=== PATIENT | female | born 1945 | race Caucasian/White ===

== ENCOUNTER 2018-01-18 11:08 | Inpatient (IN) | payer MEDICARE, BC ==
[~2018-01-18] VITALS: Ht 167.6 cm; Wt 59.0 kg
[2018-01-18] MEDS ORDERED: NITR50CA PO (11:27)
[2018-01-18] MEDS ORDERED: TEMA30CA PO (11:27)
[2018-01-18] MEDS ORDERED: METF-442 PO (11:27)
[2018-01-18] MEDS ORDERED: TIZA4TAB4 PO (11:27)
[2018-01-18] MEDS ORDERED: LOPERAMIDE (11:27)
[2018-01-18] MEDS ORDERED: LATA2.5D7 EACHEYE (11:27)
[2018-01-18] MEDS ORDERED: LISI-607 PO (11:27)
[2018-01-18] MEDS ORDERED: ACIDOPHILUS PO (11:27)
[2018-01-18] MEDS ORDERED: CRANBERRY PO (11:27)
[2018-01-18] MEDS ORDERED: LAMO25TA PO (11:27)
[2018-01-18] MEDS ORDERED: ASPI81TA31 PO (11:27)
[2018-01-18] MEDS ORDERED: MELA3TAB PO (11:27)
[2018-01-18] MEDS ORDERED: FLUO-120 PO (11:27)
[2018-01-18] MEDS ORDERED: MAGN250T10 PO (11:27)
[2018-01-18] MEDS ORDERED: CLON0.5T12 PO (11:27)
--- NOTE | 2018-01-18 11:36 | NUR ---
Joan gold in ED - 01/18/18 at 1327 by SABINA PT IS IN ROOM #2B. DR VIGIL EVALUATED THE PT.
[2018-01-18 11:40] LABS: BASOPHILS % (AUTO) 0.4 % (0.0-2.0); EOSINOPHILS # (AUTO) 0.9 K/uL (0.0-0.7); EOSINOPHILS % (AUTO) 15.7 % (0.0-7.0); HEMATOCRIT 34.1 % (31.2-41.9); HEMOGLOBIN 11.6 g/dL (10.9-14.3); LYMPHOCYTES # (AUTO) 0.8 K/uL (20.0-40.0); LYMPHOCYTES % (AUTO) 13.5 % (20.5-51.5); MEAN CORPUSCULAR HEMOGLOBIN 32.9 uug (24.7-32.8); MEAN CORPUSCULAR HGB CONC 34 g/dL (32.3-35.6); MEAN CORPUSCULAR VOLUME 96.3 fL (75.5-95.3); MONOCYTES # (AUTO) 0.5 K/uL (2.0-10.0); MONOCYTES % (AUTO) 9.1 % (0.0-11.0); NEUTROPHILS # (AUTO) 3.5 K/uL (1.8-8.9); NEUTROPHILS % (AUTO) 61.3 % (38.5-71.5); PLATELET COUNT (AUTO) 139 K/uL (179-408); RED BLOOD CELL COUNT(AUTO) 3.54 MIL/uL (3.63-4.92); WHITE BLOOD COUNT (AUTO) 5.6 K/uL (3.8-11.8)
[2018-01-18 11:43] LABS: CARBON DIOXIDE 28 mmol/L (21-32); CHLORIDE 103 mmol/L (98-107); CREATININE 0.8 mg/dL (0.6-1.3); GLUCOSE 91 mg/dL (74-106); POTASSIUM 4.5 mmol/L (3.5-5.1); UREA NITROGEN, BLOOD 16 mg/dL (7-18)
--- NOTE | 2018-01-18 11:44 | NUR ---
Joan gold in ED - 01/18/18 at 1145 by SABINA PT WAS D/C TO HOME. D/C INSTRUCTIONS GIVEN TO THE PT.
[2018-01-18 11:48] LABS: ALANINE AMINOTRANSFERASE 17 U/L (14-59); ALKALINE PHOSPHATASE 105 U/L (50-136); ASPARTATE AMINOTRANSFERASE 7 U/L (15-37); BILIRUBIN,TOTAL 0.2 mg/dL (0.2-1.0); TOTAL PROTEIN, SERUM 6.3 g/dL (6.4-8.2)
[2018-01-18] MEDS ORDERED: LORAZEPAM 2 MG/1 ML VIAL ONE ×2 (11:51→12:42)
[2018-01-18] MEDS ORDERED: LORAZEPAM 2 MG/1 ML VIAL IM ONE ×2 (12:00→12:45)
[2018-01-18 12:23] LABS: THYROID STIMULATING HORMONE 1.602 mIU/mL (0.358-3.740)
[2018-01-18] MEDS ORDERED: CEPHALEXIN MONOHYDRATE 500 MG CAPSULE PO ONE (12:30)
[2018-01-18] MEDS ORDERED: NEOMY/BACITRA/POLYMYXIN B OINT UD PACKET TP ONE ×2 (12:30→12:56)
[2018-01-18] MEDS ORDERED: diphenhydrAMINE 50 MG/1 ML VIAL ONE (12:42)
[2018-01-18] MEDS ORDERED: diphenhydrAMINE 50 MG/1 ML VIAL IM ONE (12:45)
[2018-01-18] MEDS ORDERED: CEPHALEXIN MONOHYDRATE 500 MG CAPSULE ONE (12:57)
--- NOTE | 2018-01-18 13:26 | NUR ---
mse completed, meds administered, pt did not void, sbar report to rochelle rn -mhu. belongings list , admit order and mrsa-nares completed. pt via gene to mhu.
[2018-01-18 13:45] VITALS: BP 130/97
[2018-01-18] MEDS ORDERED: MAGNESIUM HYDROXIDE 30 ML LIQUID UDC PO PRN (14:00)
[2018-01-18] MEDS ORDERED: MAG HYDROX/AL HYDROX/SIMETH 30 ML LIQUID UDC PO PRN (14:00)
--- NOTE | 2018-01-18 15:00 | NUR ---
1345 PT ADMITTED TO UNIT ON [facility] FOR THE CRIMINALLY INSANE FROM ER. PT WAS LIVING AT BOARD AND CARE IN [place]. BOARD AND CARE REPORTED THAT PT HAD BEEN SCREAMING NON STOP FOR 1 WEEK AND CONSTANTLY TRYING TO THROW HERSELF ONTO THE FLOOR FROM HER CHAIR ( Addendum: 01/18/18 at 1953 by ASA MAYORGA RN (SHE IS NON AMBULATORY AND UNABLE TO STAND OR WALK). PT HX OF DM (NO ACCUCHECK) ANXIETY, BIPOLAR, HTN. PT IS CONFUSED AND NOT ABLE TO ANSWER QUESTIONS APPROPIATLEY. SCREAMS "MOMMA" OVER AND OVER. NOT REDIRECTABLE. GAVE HALDOL 3MG IM PER MD ORDER. SKIN PROBLEMS PRESENT ON ADMISSION: SKIN TEAR ON L ELBOW, ABRASIONS ON BOTH FEET, LARGE RED AREA ON COCCYX/BUTTOX. PICTURES IN CHART. AIR MATTRESS ORDERED, INSPECTOR RADAR AND ELECTRONICS SET FOR TURN Q 2, 1:1 ORDERED FOR SAFETY SINCE PT IS TRYING TO ROLL ONTO FLOOR.
[2018-01-18] MEDS ORDERED: HALOPERIDOL LACTATE 5 MG/1 ML VIAL IM STA (15:53)
[2018-01-18 16:00] VITALS: BP 137/86
[2018-01-18] MEDS ORDERED: Medication Not On Formulary EA (Metformin Hcl 1,000 MG) PO SCH (17:00)
[2018-01-18] MEDS: METFORMIN HCL 500 MG TABLET PO SCH (18:40)
[2018-01-18 19:30] VITALS: BP 106/55
[2018-01-18] MEDS: LATANOPROST OPHT DROP 2.5 ML BOTTLE EACHEYE SCH (21:00)
[2018-01-18] MEDS: MAGNESIUM OXIDE 250 MG TABLET PO SCH (21:00)
--- NOTE | 2018-01-18 21:32 | NUR ---
Received pt to care. Pt in bed yelling and screaming. Pt calls out for "mommy". Pt is A&O X1. Pt denies that she is in pain. Pt has a 1:1 sitter that fed her dinner and pt ate 100%. After dinner the pt was observed having a productive cough but pt then swallows the mucus. Pt has a lot of mucus and appears to be unable to get it out. Pt meds were held due to agitation and advertising writer did not feel comfortable giving PO meds in pt condition. Pt denies SOB, chest x-ray from ER shows clear lungs. Textile Dyer did assess pt lungs and heard rhonchi. Textile Dyer was unable to reach RT for assessment and will follow up. Pt head was let down to pull her up in bed and noticed the distress went away. Pt is not laying flat and observed sleeping quiet.
[2018-01-19 07:30] VITALS: BP 144/56
[2018-01-19] MEDS: ASPIRIN 81 MG TAB.CHEW PO SCH (08:57)
[2018-01-19] MEDS: METFORMIN HCL 500 MG TABLET PO SCH ×2 (08:57→17:37)
[2018-01-19] MEDS: LISINOPRIL 5 MG TABLET PO SCH (08:58)
[2018-01-19] MEDS: Z GUARD REMEDY PASTE 57 GM TUBE TOP SCH ×2 (08:59→20:11)
[2018-01-19] MEDS ORDERED: PNEUMOCOCCAL 23-VAL P-SAC VAC 0.5 ML VIAL IM ONE (09:00)
[2018-01-19] MEDS ORDERED: INFLUENZA VACCINE 2018-2019 0.5 ML DISP.SYRIN IM ONE (09:00)
--- NOTE | 2018-01-19 09:13 | NUR ---
Gps/Drivers' Cash Clerk- Stayed in the activity room, on her chuyita-chair, per P.T. staff at [facility] , uses lakesha lift to assist patient to chair. Safety reviewed emphasized, has 1:1 Nursing supervision for safety. Noted patches of small bruising to her forearm as well as scabs to her left elbow noted, sacral/coccygeal redness, encouraged pressure relief.Poor skin turgor, z-guard to coccygeal area .Lungs are clear w/ auscultation , no rhonchi noted, continue to monitor, sitter was well informed.
[2018-01-19] MEDS: LORAZEPAM 0.5 MG TABLET PO PRN ×2 (09:47→16:52)
--- NOTE | 2018-01-19 11:41 | NUR ---
Gps/Career Development Engineer- Flu vaccine and Pneumonia vaccine was administered per Hosp.policy, patient was well informed.
[2018-01-19] MEDS ORDERED: QUETIAPINE FUMARATE 25 MG TABLET PO PRN (13:00)
[2018-01-19] MEDS: busPIRone 5 MG TABLET PO SCH ×2 (13:19→16:54)
[2018-01-19] MEDS: QUETIAPINE FUMARATE 25 MG TABLET PO SCH ×2 (13:19→20:13)
[2018-01-19] MEDS: GABAPENTIN 100 MG CAPSULE PO SCH ×2 (13:20→16:54)
[2018-01-19] MEDS: SERTRALINE HCL 50 MG TABLET PO SCH (13:20)
--- NOTE | 2018-01-19 14:08 | NUR ---
Gps/Physical Therapist Technician- Unable to collect urine specimen, patient has bladder incontinence. Patient was catheterized in and out as ordered , urine specimen obtained and sent to lab.
[2018-01-19 14:24] LABS: *BILIRUBIN,URIN NEGATIVE (NEGATIVE); *BLOOD, URINE Trace-intact (NEGATIVE); *COLOR,URINE YELLOW (YELLOW); *KETONES,URINE NEGATIVE (NEGATIVE); *PROTEIN,URINE NEGATIVE (NEGATIVE); *UROBILINOGEN,URINE 0.2 E.U./dl (NORMAL); LEUKOCYTE ESTERASE ,URINE 1+ (NEGATIVE); NITRITE, URINE NEGATIVE (NEGATIVE)
[2018-01-19 14:32] LABS: *AMPHETAMINE, URINE NEGATIVE (NEGATIVE); *BARBITURATE, URINE NEGATIVE (NEGATIVE); *CANNABINOID, URINE NEGATIVE (NEGATIVE); *COCCAINE, URINE NEGATIVE (NEGATIVE); *OPIATE, URINE NEGATIVE (NEGATIVE); *PHENCYCLIDINE SCREEN,URINE NEGATIVE (NEGATIVE)
[2018-01-19 14:40] LABS: UGLUCOSE 2+ (NEGATIVE)
[2018-01-19 14:41] LABS: *CLARITY,URINE SLIGHTLY HAZY (CLEAR)
[2018-01-19 15:13] LABS: BACTERIA,URINE FEW /HPF (NONE SEEN); RBC,URINE 0-3 /HPF (0-3); SQUAMOUS EPITHELIAL CELL,UR FEW /HPF (NONE SEEN)
[2018-01-19 15:17] VITALS: BP 146/48
--- NOTE | 2018-01-19 17:51 | NUR ---
Gps/Chief Drafter- Remains with 1:1 Nursing supervision for safety, calling out "Mama-Mama". Interacts when engaged. Able to naps for more that one hour this pm. Had been compliant with her routine meds. Continue with pressure relief, keeping skin clean and dry, patches of small bruising to her f/a, scabs, to her right toes, sacrococcygeal redness, z-guard applied,.
[2018-01-19 19:30] VITALS: BP 142/81
[2018-01-19] MEDS: LATANOPROST OPHT DROP 2.5 ML BOTTLE EACHEYE SCH (20:11)
[2018-01-19] MEDS: MAGNESIUM OXIDE 250 MG TABLET PO SCH (20:12)
[2018-01-19] MEDS: TEMAZEPAM 7.5 MG CAPSULE PO PRN (22:17)
--- NOTE | 2018-01-19 23:40 | NUR ---
Received pt to care, pt in bed yelling for her "francine escamilla". Pt scheduled meds given, pt showered, diaper changed and cream applied. Pt continued to scream for almost 2 hours after scheduled meds so automobile service writer gave PRN restoril. Pt is now observed quiet, sleeping, pt is being turned q 2 hours. Pt is still very disoriented, confused, hallucinating, A&O x1, automobile service writer can still hear faint gargling in the pt throat but pt is in no distress, VS are WNL. Pt still on 1:1 sitter for fall risk/safety. I will continue to monitor.
[2018-01-20] MEDS: LORAZEPAM 0.5 MG TABLET PO PRN ×2 (06:11→12:12)
[2018-01-20 07:30] VITALS: BP 167/68
[2018-01-20] MEDS: busPIRone 5 MG TABLET PO SCH ×3 (08:27→17:02)
[2018-01-20] MEDS: GABAPENTIN 100 MG CAPSULE PO SCH ×3 (08:27→17:03)
[2018-01-20] MEDS: LISINOPRIL 5 MG TABLET PO SCH (08:27)
[2018-01-20] MEDS: ASPIRIN 81 MG TAB.CHEW PO SCH (08:27)
[2018-01-20] MEDS: METFORMIN HCL 500 MG TABLET PO SCH ×2 (08:27→17:02)
[2018-01-20] MEDS: Z GUARD REMEDY PASTE 57 GM TUBE TOP SCH ×2 (08:28→21:28)
[2018-01-20] MEDS: QUETIAPINE FUMARATE 25 MG TABLET PO SCH ×2 (08:28→20:35)
[2018-01-20] MEDS: SERTRALINE HCL 50 MG TABLET PO SCH (12:34)
[2018-01-20] MEDS: ACETAMINOPHEN 325 MG TABLET PO PRN ×2 (14:15→22:56)
[2018-01-20 16:00] VITALS: BP 154/55
--- NOTE | 2018-01-20 18:00 | NUR ---
Gps/Certified Medication Technician- Sitter calling staff, claimed patient appeared to to be chocking, gurgly, small amount of thick stringy secretions , with some food particle noted. Kept HOB elevated, upright position. Patient was reassured. RT.was called to assist staff in setting up portable suction, pt. was able to coughed stringy secretions. Instructed sitter not to give thin liquids for now . Lung clear, kept HOB elevated, will continue to monitor. Charge Nurse was well informed
[2018-01-20] MEDS: LATANOPROST OPHT DROP 2.5 ML BOTTLE EACHEYE SCH (20:35)
[2018-01-20] MEDS: MAGNESIUM OXIDE 250 MG TABLET PO SCH (20:35)
[2018-01-20 20:50] VITALS: BP 183/74
[2018-01-20] MEDS ORDERED: MIRTAZAPINE 15 MG TABLET PO SCH (21:00)
[2018-01-20] MEDS: CEPHALEXIN MONOHYDRATE 250 MG CAPSULE PO SCH (21:27)
[2018-01-20] MEDS: TEMAZEPAM 7.5 MG CAPSULE PO PRN (22:56)
[2018-01-21] MEDS: LORAZEPAM 0.5 MG TABLET PO PRN ×2 (00:06→06:39)
[2018-01-21] MEDS: CEPHALEXIN MONOHYDRATE 250 MG CAPSULE PO SCH ×3 (06:39→21:02)
[2018-01-21 07:30] VITALS: BP 156/57
[2018-01-21] MEDS: busPIRone 5 MG TABLET PO SCH ×3 (08:59→17:18)
[2018-01-21] MEDS: ASPIRIN 81 MG TAB.CHEW PO SCH (08:59)
[2018-01-21] MEDS: METFORMIN HCL 500 MG TABLET PO SCH ×2 (08:59→17:22)
[2018-01-21] MEDS: GABAPENTIN 100 MG CAPSULE PO SCH ×3 (09:00→17:18)
[2018-01-21] MEDS: LISINOPRIL 5 MG TABLET PO SCH (09:00)
[2018-01-21] MEDS: QUETIAPINE FUMARATE 25 MG TABLET PO SCH ×3 (09:00→17:19)
[2018-01-21] MEDS: Z GUARD REMEDY PASTE 57 GM TUBE TOP SCH ×2 (09:01→20:25)
--- NOTE | 2018-01-21 11:54 | NUR ---
Initial Discharge Instructions: Patient currently resides at [facility] [[address] [place] [id number]; [phone]]. Spoke with patient's , Lucas Carrion ([phone]) who reports he would like the patient to return there upon discharge. ODILIA will continue to collaborate with pt, family, and MD to discuss most appropriate discharge plans for this patient. SW will form a safe and proper discharge plan
--- NOTE | 2018-01-21 12:24 | NUR ---
Firearms Report: Tiger Machine Operator completed and submitted [employer] report for 5250 GD certification.
[2018-01-21] MEDS: SERTRALINE HCL 50 MG TABLET PO SCH (14:37)
[2018-01-21 19:30] VITALS: BP 99/37
[2018-01-21 20:00] VITALS: BP 95/41
[2018-01-21] MEDS: LATANOPROST OPHT DROP 2.5 ML BOTTLE EACHEYE SCH (20:24)
[2018-01-21] MEDS: MAGNESIUM OXIDE 250 MG TABLET PO SCH (20:32)
[2018-01-21] MEDS ORDERED: MIRTAZAPINE 15 MG TABLET PO SCH (21:00)
[2018-01-21 21:30] VITALS: BP 99/37
--- NOTE | 2018-01-21 23:18 | NUR ---
RECEIVED RESIDENT IN HER ROOM WITH 1;1 SITTER FOR SAFETY AND FALL RISK PREVENTION. WAS UNABLE TO TALK WHEN SPOKEN TO AND ONLY OPENED THE EYE A FEW TIMES.APPEARS DEPRESSED WAS ONLY ABLE TO TAKE A SMALL SPOONFUL OF HER CRUSHED MEDS IN APPLE SAUCE.TURNED GENTLY Q 2HRLY TO PREVENT PRESSURE ULCERS AND Z GUARD APPLIED TO RED BUTTOCKS.FACIAL GRIMACES DOES NOT DENOTE PAIN OR DISCOMFORT.WILL CONTINUE TO MONITOR.
[2018-01-22] MEDS: CEPHALEXIN MONOHYDRATE 250 MG CAPSULE PO SCH (06:00)
--- NOTE | 2018-01-22 06:31 | NUR ---
FREQUENT ROUNDING DONE DURING THE NIGHT AND NO FEVER NOTED.LUNGS WAS ALSO CLEAR AT APPROX. 0500HRS STAFFS WANT TO GIVE HER A BED BATH. SHE WAS LETHARGIC BUT AROUSABLE TO STIMULI AND OPENED HER EYES SLIGHTLY TO NAME CALL. VITALS WERE TAKEN AND IT WAS FF. BP 74/79,T 97.7 P.94 R 22 02 SAT 94%.CALLED THE DOCTORS EXCHANGE FOR HER.MADE ANOTHER CALL AT APPROX 0610 AND AWAITING CALL FROM THE MD. MD LATER CALLED BACK AND CODE STATUS WAS READ TO HIM PLUS VITAL SIGNS. DR CHESTER ISABEL STATED 'DONT DO ANYTHING BECAUSE OF CODE STATUS'. AND TO CONTINUE TO MONITOR
--- NOTE | 2018-01-22 07:02 | NUR ---
SLEPT FOR APPROX.10HRS.SEE NURSES NOTES
[2018-01-22 07:30] VITALS: BP 70/30
--- NOTE | 2018-01-22 08:10 | NUR ---
SPOKE WITH DR. YUN FOR PATIENT'S CONDITION CHANGED, DISCONTINUE 14 DAYS HOLD .
--- NOTE | 2018-01-22 08:14 | NUR ---
0730 Received patient lying in bed non verbally responsive. V/s taken, B/P- 70/30 Hr- 92 R- 18 O2 sat 91 % R/A. Respiration unlabored. 0735 Called rapid response right away. Report given to michael of rapid response regarding the patient change of condition. Blood sugar check 2x registered HI. Stat glucoe, BMP, CBC and c-xray ordered. 0745 Called [facility] doctor data power consultant charging crane operator informed urgent call. 0750 [facility] lead care manager called MD data power consultant. 0755 Transfer patient to ER via bed accompanied by rapid response.0800 Report given to LIANET Coelho regarding patient changed of condition.
--- NOTE | 2018-01-22 09:08 | NUR ---
NOTIFIED PATIENT'S RITCHIE BENSON @ [phone] FOR PT CONDITION CHANGED AND TRANSFERED TO ER.
[2018-01-22] MEDS ORDERED: MAGN355O5 PO (09:22)
[2018-01-22] MEDS ORDERED: CEPH250C PO (09:22)
[2018-01-22] MEDS ORDERED: MAGN500T20 PO (09:22)
[2018-01-22] MEDS ORDERED: [UNRECOGNIZED DRUG - OTHER] TP (09:22)
[2018-01-22] MEDS ORDERED: BUSP5TAB3 PO (09:22)
[2018-01-22] MEDS ORDERED: ASPI81TA31 PO (09:22)
[2018-01-22] MEDS ORDERED: GABA-534 PO (09:22)
[2018-01-22] MEDS ORDERED: LORA0.5T PO (09:22)
[2018-01-22] MEDS ORDERED: MIRT15TA7 PO (09:22)
[2018-01-22] MEDS ORDERED: TEMA15CA PO (09:22)
[2018-01-22] MEDS ORDERED: SERT25TA PO (09:22)
[2018-01-22] MEDS ORDERED: QUET25TA PO ×2 (09:22)
[2018-01-22] MEDS ORDERED: ACET-2154 PO (09:22)
[2018-01-22] MEDS ORDERED: MAGN400O6 PO (09:22)
[2018-01-22] MEDS ORDERED: METF-442 PO (09:22)
--- NOTE | 2018-01-22 11:03 | NUR ---
Discharge Note: Patient had a change of condition this AM and was DC'd to the Emergency room, then transferred to ICU. Patient's , Lucas Carrion ([phone]) notified. Dr. Augustin discontinued patient's 5250. SW will continue to be available to assist in discharge planning if needed.
== END 2018-01-22 08:10 | disposition short-term general hospital (02) | DRG 885 ==
LOC: ER 11:08 → GPS 13:24
PROVIDERS: ADMIT Psychiatry & Neurology Psychosomatic Medicine; ATTEND Registered Nurse
DX: F23 Brief psychotic disorder (principal); F01.50 Vascular dementia, unspecified severity, without behavioral disturbance, psychotic disturbance, mood disturbance, and anxiety; E11.65 Type 2 diabetes mellitus with hyperglycemia; N39.0 Urinary tract infection, site not specified; E44.0 Moderate protein-calorie malnutrition; L03.115 Cellulitis of right lower limb; Z79.84 Long term (current) use of oral hypoglycemic drugs; I69.344 Monoplegia of lower limb following cerebral infarction affecting left non-dominant side; B96.89 Other specified bacterial agents as the cause of diseases classified elsewhere; I10 Essential (primary) hypertension; Z68.21 Body mass index [BMI] 21.0-21.9, adult; F41.9 Anxiety disorder, unspecified; Z99.3 Dependence on wheelchair; Z66 Do not resuscitate; I95.9 Hypotension, unspecified
CPT/HCPCS: 36415; 70030-TC; 70450; 71045; 80307; 84443; 85025; 90686; 90732; 93005; A4663; J1200; J1630; J2060

== ENCOUNTER 2018-01-22 08:03 | Inpatient (IN) | payer MEDICARE, BC ==
[2018-01-22] VITALS (50 sets, daily range): BP systolic 73–143; BP diastolic 35–89
[~2018-01-22] VITALS: Ht 167.6 cm; Wt 67.6 kg
[~2018-01-22 08:03] MED LIST: ACIDOPHILUS PO; ASPI81TA31 PO; CRANBERRY PO; LATA2.5D7 EACHEYE; LISI-607 PO; LOPERAMIDE; MAGN250T10 PO; MELA3TAB PO; METF-442 PO; NITR50CA PO; TIZA4TAB4 PO
--- NOTE | 2018-01-22 08:05 | NUR ---
RECEIVED A 65 Y/O FEMALE PT FROM [facility], PT UNRESPONSIVE AND LETHARGIC. BREATHING VIA N/C 3LPM. UPON ARRIVAL CONNECTED TO JAVA CONSULTANT V/S TAKEN SHOWING SR, BP 80/43. PT IS DNR DNI. GLUCOSE LEVEL SHOWING HIGH. IV LINE ON LT HAND G20 INSERTED, BLOOD WORK SENT TO LAB.
[2018-01-22] MEDS ORDERED: IV NORMAL SALINE 1000 ML BAG IV ONE ×2 (08:15→10:00)
--- NOTE | 2018-01-22 08:30 | NUR ---
FOLYES CATHETER INSERTED, I.J CENTERAL LINE INSERTED. PATIENT RECEIVING FLUIDS. PT STARTED ON LEVOPHED DRIP.
[2018-01-22 08:36] LABS: *BILIRUBIN,URIN 1+ (NEGATIVE); *BLOOD, URINE 1+ (NEGATIVE); *CLARITY,URINE CLOUDY (CLEAR); *COLOR,URINE YELLOW (YELLOW); *KETONES,URINE 1+ (NEGATIVE); *PROTEIN,URINE 1+ (NEGATIVE); *UROBILINOGEN,URINE 0.2 E.U./dl (NORMAL); LEUKOCYTE ESTERASE ,URINE 1+ (NEGATIVE); NITRITE, URINE NEGATIVE (NEGATIVE); UGLUCOSE 2+ (NEGATIVE)
[2018-01-22] MEDS ORDERED: NOREPINEPHRINE BITARTRATE 4 MG/4 ML VIAL IV ONE (08:37)
[2018-01-22 08:42] LABS: ALANINE AMINOTRANSFERASE 12 U/L (14-59); ALKALINE PHOSPHATASE 134 U/L (50-136); ASPARTATE AMINOTRANSFERASE 8 U/L (15-37); BILIRUBIN,DIRECT 0.1 mg/dL (0.0-0.2); BILIRUBIN,TOTAL 0.4 mg/dL (0.2-1.0); CHLORIDE 101 mmol/L (98-107); CREATININE 4.5 mg/dL (0.6-1.3); TOTAL PROTEIN, SERUM 6.6 g/dL (6.4-8.2)
[2018-01-22 08:48] LABS: CARBON DIOXIDE 10 mmol/L (21-32); POTASSIUM 6.8 mmol/L (3.5-5.1); UREA NITROGEN, BLOOD 99 mg/dL (7-18)
[2018-01-22 08:50] LABS: GLUCOSE 1358 mg/dL (74-106)
[2018-01-22] MEDS ORDERED: SODIUM BICARBONATE 8.4% 50 MEQ/50 ML DISP.SYRIN IV ONE ×2 (08:56→09:00)
[2018-01-22] MEDS ORDERED: CALCIUM CHLORIDE 1 GM/10 ML DISP.SYRIN IVP ONE ×2 (08:57→09:00)
[2018-01-22] MEDS ORDERED: INSULIN REGULAR, HUMAN 300 UNIT/3 ML VIAL ONE (08:58)
[2018-01-22 09:00] LABS: BACTERIA,URINE FEW /HPF (NONE SEEN); SQUAMOUS EPITHELIAL CELL,UR FEW /HPF (NONE SEEN); WBC,URINE 80-100 /HPF (0-3)
[2018-01-22] MEDS ORDERED: INSULIN REGULAR, HUMAN 1,000 UNITS/10 ML VIAL IV ONE (09:00)
[2018-01-22] MEDS ORDERED: NOREPINEPHRINE BITARTRATE 8 MG in IV DEXTROSE 5% 500 ML IV PRN (09:00)
[2018-01-22] MEDS ORDERED: PIPERACILLIN/TAZOBACTAM/D5W 50 ML IV ONE (09:12)
[2018-01-22] MEDS ORDERED: LEVOFLOXACIN 750MG/D5W 150 ML IV ONE ×2 (09:12→09:15)
[2018-01-22] MEDS ORDERED: PIPERACILLIN SODIUM/TAZOBACTAM 3.375 G in IV DEXTROSE 5% 50 ML IV ONE (09:15)
[2018-01-22 09:18] LABS: BASOPHILS % (AUTO) 0.2 % (0.0-2.0); EOSINOPHILS % (AUTO) 0.2 % (0.0-7.0); HEMATOCRIT 33.8 % (31.2-41.9); HEMOGLOBIN 10.7 g/dL (10.9-14.3); LYMPHOCYTES # (AUTO) 0.8 K/uL (20.0-40.0); LYMPHOCYTES % (AUTO) 6.6 % (20.5-51.5); MEAN CORPUSCULAR HEMOGLOBIN 31.7 uug (24.7-32.8); MEAN CORPUSCULAR HGB CONC 32 g/dL (32.3-35.6); MEAN CORPUSCULAR VOLUME 99.8 fL (75.5-95.3); MONOCYTES # (AUTO) 0.9 K/uL (2.0-10.0); MONOCYTES % (AUTO) 7.5 % (0.0-11.0); NEUTROPHILS # (AUTO) 10.8 K/uL (1.8-8.9); NEUTROPHILS % (AUTO) 85.5 % (38.5-71.5); PLATELET COUNT (AUTO) 204 K/uL (179-408); RED BLOOD CELL COUNT(AUTO) 3.39 MIL/uL (3.63-4.92); WHITE BLOOD COUNT (AUTO) 12.6 K/uL (3.8-11.8)
[2018-01-22 09:21] LABS: LYMPHOCYTES % (MANUAL) 8 % (20-40); MONOCYTES % (MANUAL) 7 % (2-10); NEUTROPHILS % (MANUAL) 85 % (42-75)
[2018-01-22] MEDS ORDERED: TEMA15CA PO (09:22)
[2018-01-22] MEDS ORDERED: QUET25TA PO ×2 (09:22)
[2018-01-22] MEDS ORDERED: SERT25TA PO (09:22)
[2018-01-22] MEDS ORDERED: ACET-2154 PO (09:22)
[2018-01-22] MEDS ORDERED: LORA0.5T PO (09:22)
[2018-01-22] MEDS ORDERED: METF-442 PO (09:22)
[2018-01-22] MEDS ORDERED: [UNRECOGNIZED DRUG - OTHER] TP (09:22)
[2018-01-22] MEDS ORDERED: MIRT15TA7 PO (09:22)
[2018-01-22] MEDS ORDERED: ASPI81TA31 PO (09:22)
[2018-01-22] MEDS ORDERED: GABA-534 PO (09:22)
[2018-01-22] MEDS ORDERED: CEPH250C PO (09:22)
[2018-01-22] MEDS ORDERED: MAGN355O5 PO (09:22)
[2018-01-22] MEDS ORDERED: MAGN500T20 PO (09:22)
[2018-01-22] MEDS ORDERED: BUSP5TAB3 PO (09:22)
[2018-01-22] MEDS ORDERED: MAGN400O6 PO (09:22)
[2018-01-22] MEDS ORDERED: ASPIRIN 300 MG RECTAL SUPP RC ONE ×2 (09:30→09:57)
[2018-01-22] MEDS ORDERED: SODIUM POLYSTYRENE SULFONATE ENEMA 30 G/120 ML BOTTLE RC ONE ×2 (09:30→10:13)
--- NOTE | 2018-01-22 10:40 | NUR ---
FULL REPORT GIVEN TO LIANET MCINTYRE AND PATIENT TRANSFERED TO ICU. ALL BELONGINGS TAKEN.
[2018-01-22 10:44] LABS: CHLORIDE 107 mmol/L (98-107); CREATININE 4.2 mg/dL (0.6-1.3); POTASSIUM 4.6 mmol/L (3.5-5.1)
[2018-01-22 10:46] LABS: CARBON DIOXIDE 10 mmol/L (21-32); UREA NITROGEN, BLOOD 90 mg/dL (7-18)
[2018-01-22 11:00] LABS: GLUCOSE 1306 mg/dL (74-106)
--- NOTE | 2018-01-22 11:00 | NUR ---
REPORT received from Isra MARTINI from ED, 72 yr old female who was admiited from [facility] for hypotension, hyperglycemia, and obtundation. started on levophed drip thru IJ tlc central line . patient eyes are opn but not focusing. ekg sinus rhtym up to 135/min. bp 90/52. on o2 3lnc, chantelle caheter intact. call to Dr Maria for admission orders and plan of Addendum: 01/22/18 at 1134 by MIGUELINA SMALL RN Amended: Links added.
[2018-01-22] MEDS ORDERED: INSULIN REGULAR, HUMAN 300 UNIT/3 ML VIAL SQ STA ×2 (12:28→19:34)
--- NOTE | 2018-01-22 12:45 | NUR ---
SEEN AND EXAMINED BY DR JULIO WITH NEW ORDERS. ACCUCHECK IS HIGH RESULT. ORDEREED RANDOM SERUM GLUCOSE FOR CONFIRMED RESULT.
--- NOTE | 2018-01-22 12:48 | NUR ---
accucheck out of range , 15 units humulin R given sq Addendum: 01/22/18 at 1325 by MIGUELINA SMALL RN Amended: Links added.
[2018-01-22] MEDS ORDERED: PHENYLEPHRINE IV 40 MG in IV DEXTROSE 5% 250 ML IV PRN (13:00)
--- NOTE | 2018-01-22 13:00 | NUR ---
IV NS started at 100 ml/hr via central line Addendum: 01/22/18 at 1321 by MIGUELINA SMALL RN Amended: Links added. Addendum: 01/22/18 at 1325 by MIGUELINA SMALL RN Amended: Links added.
[2018-01-22] MEDS: IV NS 1000 ML 1,000 ML IV PRN (13:01)
--- NOTE | 2018-01-22 13:27 | NUR ---
NEOSYNEPHRINE DRIP STARTED AT 100 MCG/MIN . HR was indcreased while on Levophed drip. Addendum: 01/22/18 at 1552 by MIGUELINA SMALL RN Amended: Links added. Addendum: 01/22/18 at 1556 by MIGUELINA SMALL RN Amended: Links added. Addendum: 01/22/18 at 1557 by MIGUELINA SMALL RN Amended: Links added.
[2018-01-22] MEDS ORDERED: VANCOMYCIN IV 1 G in PREMIXED 0 EACH IV ONE (14:00)
--- NOTE | 2018-01-22 14:03 | NUR ---
CLINICAL PHARMACY NOTE: VANCOMYCIN DOSING Request for vancomycin dosing on 72 y/o female 5'6" 138lbs for sepsis Temp 98.9 BUN 90 Scr 4.2 WBC 12.6 also on Zosyn Give vancomycin 1gm today.Will dose by levels due to decrease renal function. Random vancomycin level ordered for tomorrow. Will continue to monitor
[2018-01-22] MEDS: BLOOD SUGAR DIAGNOSTIC 1 EACH STRIP VI SCH ×9 (15:00→23:03)
[2018-01-22] MEDS: INSULIN REGULAR, HUMAN 100 UNIT in IV NORMAL SALINE 99 ML IV PRN ×2 (15:07)
--- NOTE | 2018-01-22 15:07 | NUR ---
INSULIN DRIP STARTED ORDERED AT 6UNITS/HR AND CONTINUE ACCUCHECKS MONITORING.
[2018-01-22] MEDS ORDERED: ONDANSETRON 4 MG/2 ML VIAL IV PRN (15:45)
[2018-01-22] MEDS ORDERED: ACETAMINOPHEN 650 MG SUPP.RECT RC PRN (15:45)
[2018-01-22] MEDS ORDERED: MORPHINE SULFATE 2 MG/1 ML DISP.SYRIN IV PRN (15:45)
--- NOTE | 2018-01-22 15:56 | NUR ---
noted left elbow milagros abrasions and left foot toes abrasions. Addendum: 01/22/18 at 1556 by MIGUELINA SMALL RN Amended: Links added. Addendum: 01/22/18 at 1557 by MIGUELINA SMALL RN Amended: Links added.
--- NOTE | 2018-01-22 15:57 | NUR ---
seen by dr cramer, cardiology. orders received. Addendum: 01/22/18 at 1557 by MIGUELINA SMALL RN Amended: Links added.
--- NOTE | 2018-01-22 16:09 | NUR ---
humulin drip started at 6 units /hr for accucheck (high out of range) bs recheck 1392 Addendum: 01/22/18 at 1610 by MIGUELINA SMALL RN Amended: Links added.
[2018-01-22] MEDS ORDERED: NOREPINEPHRINE BITARTRATE IV PRN (16:15)
[2018-01-22] MEDS ORDERED: NORMAL SALINE IV PRN (16:15)
[2018-01-22 16:28] LABS: ABG BASE EXCESS -22.3 mmol/L; ABG HCO3 8.5 mmol/L; ABG PO2 132.8 mmHg (75.0-100.0); ABG SITE RIGHT RADIAL; ABG TOTAL HEMOGLOBIN 10.9 G/dL (12.0-16.0); COHb 0.7 % (0.5-1.5); MetHb 0.4 % (0.0-1.5); O2Hb 96.9 % (94.0-97.0); VENT MODE Nasal Cannula
[2018-01-22 16:28] LABS: ABG PCO2 46.8 mmHg (35.0-45.0); ABG PH 7.075 (7.350-7.450); ABG PO2 112.9 mmHg (75.0-100.0); ABG SITE RIGHT RADIAL; ABG TOTAL HEMOGLOBIN 11.5 G/dL (12.0-16.0)
[2018-01-22 16:29] LABS: ABG BASE EXCESS -16.1 mmol/L; ABG HCO3 13.4 mmol/L; MetHb 0.3 % (0.0-1.5); O2Hb 96.8 % (94.0-97.0); VENT MODE Nasal Cannula
--- NOTE | 2018-01-22 16:30 | NUR ---
NOTIFIED DR JULIO OF THE ABG RESULT WITHOUT ANY ORDERS.
[2018-01-22] MEDS: PIPERACILLIN/TAZOBACTAM/D5W 2.25 G in PREMIXED 1 EACH IV SCH (16:54)
[2018-01-22] MEDS: PHENYLEPHRINE IV PRN ×3 (16:56→22:33)
[2018-01-22] MEDS: NORMAL SALINE IV PRN ×3 (16:56→22:33)
--- NOTE | 2018-01-22 17:00 | NUR ---
call to dr Maria re BS 1296 ON 6 UNITS INSULIN DRIP, HR UP TO 140/MIN, AND PH OF 7.07. ORDERS received Addendum: 01/22/18 at 1722 by MIGUELINA SMALL RN Amended: Links added.
[2018-01-22] MEDS ORDERED: INSULIN REGULAR, HUMAN 300 UNIT/3 ML VIAL SQ ONE (17:15)
--- NOTE | 2018-01-22 17:15 | NUR ---
15UNITS OF REGULAR INSULAR GIVEN LEFT DELTOID SQ ORDERED.
--- NOTE | 2018-01-22 19:26 | NUR ---
Notified Dr. Meadows of pt urine output of 50cc and BGL of 1146. Received order to give regular humulin insulin 20 units stat and increase NS to 120ml an hour.
--- NOTE | 2018-01-22 20:00 | NUR ---
BGL checked with accucheck monitor, result continues to read high
--- NOTE | 2018-01-22 20:15 | NUR ---
Notified RT and Radiology of order for CT scan of head.
--- NOTE | 2018-01-22 20:29 | NUR ---
First step mattress delivered
[2018-01-22] MEDS ORDERED: INSULIN GLARGINE,HUM 300 UNITS/3 ML CARTRIDGE SQ SCH (21:00)
[2018-01-22] MEDS: LATANOPROST OPHT DROP 2.5 ML BOTTLE EACHEYE SCH (21:00)
[2018-01-22] MEDS: Z GUARD REMEDY PASTE 57 GM TUBE TOP SCH (21:00)
--- NOTE | 2018-01-22 21:00 | NUR ---
Pt transported with continuous monitoring for CT scan of head. RT present during transport.
[2018-01-22 21:14] LABS: CARBON DIOXIDE 17 mmol/L (21-32); CHLORIDE 110 mmol/L (98-107); CREATININE 4.8 mg/dL (0.6-1.3); POTASSIUM 3.8 mmol/L (3.5-5.1)
[2018-01-22 21:15] LABS: GLUCOSE 987 mg/dL (74-106); UREA NITROGEN, BLOOD 94 mg/dL (7-18)
--- NOTE | 2018-01-22 21:30 | NUR ---
Results of CT scan relayed to MD with no new orders.
--- NOTE | 2018-01-22 21:52 | NUR ---
Insulin drip increased to 8 units/hr after critical serum of 947mg/dl report to doctor brady rodriguez
[2018-01-22] MEDS ORDERED: HEPARIN/D5W DRIP 500 ML IV PRN (22:00)
--- NOTE | 2018-01-22 22:00 | NUR ---
Received new order to decrease IV fluids of NS to 80cc/hr.
--- NOTE | 2018-01-22 22:11 | NUR ---
Pt had episode of paroxysmal SVT, Strip obtained and filed in chart. No distress noted.
--- NOTE | 2018-01-22 22:47 | NUR ---
Spoke to pt hugh goyal regarding pt condition. Pt clarified code status stating he does not want intubation or mechanical ventilation. Confirmed with second nurse. now aware that pt is in critical condition and could pass away. notified.
[2018-01-22 23:04] LABS: ABG BASE EXCESS -14.7 mmol/L; ABG HCO3 13.6 mmol/L; ABG PCO2 40.8 mmHg (35.0-45.0); ABG PH 7.141 (7.350-7.450); ABG PO2 164.3 mmHg (75.0-100.0); ABG SITE LEFT BRACHIAL; ABG TOTAL HEMOGLOBIN 11.9 G/dL (12.0-16.0); COHb 0.6 % (0.5-1.5); MetHb 0.6 % (0.0-1.5); VENT MODE Nasal Cannula
--- NOTE | 2018-01-22 23:18 | NUR ---
Received order from Dr. Meadows to begin Heparin drip for ACS at 744u/hr. Coag result showing PTT of 19.7.
[2018-01-22] MEDS: HEPARIN/D5W DRIP 500 ML IV PRN (23:20)
--- NOTE | 2018-01-22 23:59 | NUR ---
Insulin drip dropped down to 6 units after BGL of 593mg/dl recording on portable accu-check
[2018-01-23] VITALS (94 sets, daily range): BP systolic 74–148; BP diastolic 26–135
[2018-01-23] MEDS: IV NS 1000 ML 1,000 ML IV PRN (00:13)
[2018-01-23] MEDS: BLOOD SUGAR DIAGNOSTIC 1 EACH STRIP VI SCH ×17 (00:13→18:23)
[2018-01-23] MEDS: PIPERACILLIN/TAZOBACTAM/D5W 2.25 G in PREMIXED 1 EACH IV SCH ×3 (00:46→16:58)
--- NOTE | 2018-01-23 02:00 | NUR ---
Pt turned and repositioned every 2 hours. Bed in low locked position. Visual checks done frequently. Will continue to monitor.
--- NOTE | 2018-01-23 04:00 | NUR ---
Blood glucose level 374mg/dl. Contacted [employer] [facility] for orders. Awaiting call back
--- NOTE | 2018-01-23 04:32 | NUR ---
Contacted [facility] a second time. Awaiting call back.
--- NOTE | 2018-01-23 04:40 | NUR ---
Received order to draw AM labs STAT
[2018-01-23 05:02] LABS: BASOPHILS % (AUTO) 0.2 % (0.0-2.0); EOSINOPHILS % (AUTO) 0.2 % (0.0-7.0); HEMATOCRIT 35.9 % (31.2-41.9); HEMOGLOBIN 11.8 g/dL (10.9-14.3); LYMPHOCYTES # (AUTO) 0.4 K/uL (20.0-40.0); LYMPHOCYTES % (AUTO) 2.7 % (20.5-51.5); MEAN CORPUSCULAR HEMOGLOBIN 31.9 uug (24.7-32.8); MEAN CORPUSCULAR HGB CONC 33 g/dL (32.3-35.6); MEAN CORPUSCULAR VOLUME 97.3 fL (75.5-95.3); MONOCYTES # (AUTO) 1.4 K/uL (2.0-10.0); MONOCYTES % (AUTO) 8.8 % (0.0-11.0); NEUTROPHILS # (AUTO) 14.4 K/uL (1.8-8.9); NEUTROPHILS % (AUTO) 88.1 % (38.5-71.5); PLATELET COUNT (AUTO) 153 K/uL (179-408); RED BLOOD CELL COUNT(AUTO) 3.69 MIL/uL (3.63-4.92); WHITE BLOOD COUNT (AUTO) 16.4 K/uL (3.8-11.8)
[2018-01-23 05:22] LABS: ALANINE AMINOTRANSFERASE 26 U/L (14-59); ALKALINE PHOSPHATASE 107 U/L (50-136); ASPARTATE AMINOTRANSFERASE 47 U/L (15-37); BILIRUBIN,TOTAL 0.3 mg/dL (0.2-1.0); CARBON DIOXIDE 19 mmol/L (21-32); CHLORIDE 116 mmol/L (98-107); CREATININE 5.1 mg/dL (0.6-1.3); MAGNESIUM 2.7 mg/dL (1.8-2.4); PHOSPHOROUS 5.1 mg/dL (2.5-4.9); POTASSIUM 4.1 mmol/L (3.5-5.1); TOTAL PROTEIN, SERUM 6.3 g/dL (6.4-8.2)
[2018-01-23 05:27] LABS: GLUCOSE 438 mg/dL (74-106); UREA NITROGEN, BLOOD 94 mg/dL (7-18)
--- NOTE | 2018-01-23 05:37 | NUR ---
Received critical labs troponin 5.189 and glucose of 438mg/dl. Contacted [facility]. Awaiting call back.
[2018-01-23] MEDS: Z GUARD REMEDY PASTE 57 GM TUBE TOP PRN (05:43)
[2018-01-23] MEDS ORDERED: IV NORMAL SALINE 500 ML BAG IV ONE (06:00)
--- NOTE | 2018-01-23 06:00 | NUR ---
Notified institutional commodity analyst OIL PAINT SHADER of absent urine output throughout night. New order to increase fluids to 125ml/hr
[2018-01-23] MEDS: INSULIN REGULAR, HUMAN 100 UNIT in IV NORMAL SALINE 99 ML IV PRN ×2 (06:10)
[2018-01-23 06:11] LABS: ABG BASE EXCESS -13.7 mmol/L; ABG HCO3 14.9 mmol/L; ABG PCO2 45.1 mmHg (35.0-45.0); ABG PH 7.136 (7.350-7.450); ABG PO2 167.2 mmHg (75.0-100.0); ABG SITE LEFT BRACHIAL; ABG TOTAL HEMOGLOBIN 11.7 G/dL (12.0-16.0); COHb 0.5 % (0.5-1.5); MetHb 0.3 % (0.0-1.5); O2Hb 98.3 % (94.0-97.0); VENT MODE Nasal Cannula
[2018-01-23] MEDS ORDERED: SODIUM BICARBONATE 8.4% 50 MEQ in IV NS 1000 ML 1,000 ML IV PRN (06:27)
--- NOTE | 2018-01-23 07:48 | NUR ---
RECEIVED A 72 Y/O FEMALE PT A CASE OF SEPTIC SHOCK, RENAL FAILURE. BREATHING VIA N/C 3LPM. SHES ASLEEP , THOUGH OPENS EYES SPONTANEOUSLY CONNECTED TO ECG MONITOR SHOWING SR. PT HAS A RT I.J CATH TRIPLE LUMEN. AND 2 PERIPHERAL IV LINES. G20 AND G22. RECEIVING LEVOPHED DRIP @4MCG/HR, AND HEPARIN DRIP O@744 UNITS/HR AND INSULIN DRIP @3 UNITS/HR. AND PHENYLEPHRINE @ 100MCG/HR. URINATING VIA FC.
[2018-01-23] MEDS: Z GUARD REMEDY PASTE 57 GM TUBE TOP SCH ×2 (09:26→21:23)
[2018-01-23] MEDS: PANTOPRAZOLE SODIUM 40 MG VIAL IV SCH (09:26)
[2018-01-23] MEDS: PHENYLEPHRINE IV PRN ×2 (09:55→21:53)
[2018-01-23] MEDS: NORMAL SALINE IV PRN ×2 (09:55→21:53)
[2018-01-23 10:20] LABS: CARBON DIOXIDE 19 mmol/L (21-32); CHLORIDE 119 mmol/L (98-107); CREATININE 5.1 mg/dL (0.6-1.3); GLUCOSE 180 mg/dL (74-106); POTASSIUM 4.1 mmol/L (3.5-5.1)
[2018-01-23 10:22] LABS: UREA NITROGEN, BLOOD 97 mg/dL (7-18)
[2018-01-23] MEDS ORDERED: IV D5/ 0.9% NACL 1,000 ML IV PRN (10:45)
--- NOTE | 2018-01-23 11:00 | NUR ---
DR JULIO INFORMED ABOUT THE BLOOD SUGAR, 166MG/DL AND STILL ON INSULIN DRIP. ORDERED TO CHANGE IVF TO D5NS @ RATE 100ML/HR. ORDERS RECEIVED.
--- NOTE | 2018-01-23 12:06 | NUR ---
CLINICAL PHARMACY NOTE: VANCOMYCIN DOSING Request for vancomycin dosing on 72 y/o female 5'6" 138lbs for sepsis Temp 99.4 BUN 94 Scr 5.1 (ARF) WBC 16.4 also on Zosyn Random level: pending today at 1330 Give vancomycin 1gm today.Will dose by levels due to decrease renal function. Will check next level today at 1330 and redose as appropriately. Will follow Addendum: 01/23/18 at 1456 by MADYSON CHAVEZ ADM RANDOM RESULTED 15.7, DOSED ANOTHER 1GM X 1 TODAY AT 1500. NEXT RANDOM ORDERED FOR TOMORROW AT 1500. WILL CHECK LEVEL AND REDOSE IF NEEDED. WILL FOLOW
--- NOTE | 2018-01-23 14:57 | NUR ---
WOUND CARE CONSULT: PT PRESENTS WITH MULTIPLE INTACT DEEP TISSUE INJURIES INCLUDING LEFT EAR, LEFT FOOT AND ANKLE, LEFT HEEL, LEFT BUTTOCK AND SACRUM, PRESENT ON ADMISSION. PT ON FIRST STEP [facility]. ALL SKIN PROTECTION AND PRESSURE ULCER PREVENTION MEASURES IN PLACE. DISCUSSED WITH NURSING STAFF. WILL SEE PRN. HENAO IN AGREEMENT WITH PLAN OF CARE. Addendum: 01/23/18 at 1500 by TOBIN PATTON RN Amended: Links added.
[2018-01-23] MEDS: MORPHINE SULFATE 4 MG/1 ML DISP.SYRIN IV PRN (14:58)
[2018-01-23] MEDS ORDERED: VANCOMYCIN IV 1 G in PREMIXED 0 EACH IV ONE (15:00)
--- NOTE | 2018-01-23 15:00 | NUR ---
SEEN BY DR JULIO, UPDATES GIVEN ON PATIENT, ALL NEW ORDERS RECEIVED.
[2018-01-23] MEDS ORDERED: DEXTROSE 50% 50 ML DISP.SYRIN IV PRN (15:30)
--- NOTE | 2018-01-23 15:30 | NUR ---
SEEN BY DR JENSEN, UPDATES GIVEN ,ALL NEW ORDERS RECEIVED AND REVIEWED.
--- NOTE | 2018-01-23 15:30 | NUR ---
CONTACTED FR EMERSON TO INFORM HIM ABOUT THE HEART RATE BEING TACHY 153, NO ANSWER MESSAGE LEFT. CALLED BACK AROUND 1600 , NO ORDERES GIVEN INFORMED ME THAT HE WILL BE COMING TO SEE THE PATIENT TO EXAMINE HER.
[2018-01-23] MEDS ORDERED: BUMETANIDE 1 MG/4 ML VIAL IV ONE (15:45)
[2018-01-23] MEDS: SODIUM ACETATE IV PRN (17:00)
[2018-01-23] MEDS: [UNRECOGNIZED DRUG - OTHER] IV PRN (17:00)
[2018-01-23] MEDS: INSULIN REGULAR, HUMAN 300 UNIT/3 ML VIAL SQ PRN (18:24)
[2018-01-23 18:53] LABS: *BILIRUBIN,URIN 1+ (NEGATIVE); *BLOOD, URINE 3+ (NEGATIVE); *CLARITY,URINE CLOUDY (CLEAR); *COLOR,URINE YELLOW (YELLOW); *KETONES,URINE TRACE (NEGATIVE); *PROTEIN,URINE 3+ (NEGATIVE); *UROBILINOGEN,URINE 0.2 E.U./dl (NORMAL); NITRITE, URINE NEGATIVE (NEGATIVE); PH,URINE 5.5 (5.0-8.0); UGLUCOSE 2+ (NEGATIVE)
[2018-01-23] MEDS ORDERED: MEROPENEM 500 MG in IV NORMAL SALINE 50 ML IV SCH (19:00)
--- NOTE | 2018-01-23 19:00 | NUR ---
BP 84/59. Neosyn titrated to 130mcg/hr. Will monitor. Addendum: 01/24/18 at 0229 by JORDANA PICKARD RN Omit neosyn; insert phenylephrine
[2018-01-23 19:03] LABS: *CREATININE,URINE 86.7 mg/dL (30-125); *URINE TOTAL PROTEIN RANDOM 363.5 mg/dL (<150/24HR)
[2018-01-23 20:11] LABS: LEUKOCYTE ESTERASE ,URINE 1+ (NEGATIVE)
[2018-01-23] MEDS: MEROPENEM 500 MG in IV NORMAL SALINE 50 ML IV SCH (20:19)
[2018-01-23 20:24] LABS: BACTERIA,URINE MODERATE /HPF (NONE SEEN); RBC,URINE 20-50 /HPF (0-3); SQUAMOUS EPITHELIAL CELL,UR FEW /HPF (NONE SEEN); WBC,URINE 50-80 /HPF (0-3)
[2018-01-23] MEDS: LATANOPROST OPHT DROP 2.5 ML BOTTLE EACHEYE SCH (21:22)
[2018-01-23] MEDS ORDERED: PHENYLEPHRINE 10 MG/1 ML VIAL ONE (21:41)
--- NOTE | 2018-01-23 21:59 | NUR ---
Neosyn obtained from stock medications. Addendum: 01/24/18 at 0217 by JORDANA PICKARD RN Pt turned and repositioned. Addendum: 01/24/18 at 0229 by JORDANA PICKARD RN Omit neosyn; insert phenylephrine
--- NOTE | 2018-01-23 23:15 | NUR ---
Provided care to pt. Noted pt able to state short phrases and answer yes and no questions. Addendum: 01/24/18 at 0218 by JORDANA PICKARD RN PT turned and repositioned. Oral care provided.
[2018-01-24] VITALS (95 sets, daily range): BP systolic 69–163; BP diastolic 35–112
[2018-01-24] MEDS: BLOOD SUGAR DIAGNOSTIC 1 EACH STRIP VI SCH ×5 (00:12→23:21)
[2018-01-24] MEDS: INSULIN REGULAR, HUMAN 300 UNIT/3 ML VIAL SQ PRN ×5 (00:15→23:23)
--- NOTE | 2018-01-24 00:45 | NUR ---
Contacted [facility] medical group regarding pt coughing. New order received of Albuterol and Atrovent PRN Addendum: 01/24/18 at 0218 by JORDANA PICKARD RN Pt turned and repositioned. No complaints of pain.
--- NOTE | 2018-01-24 00:50 | NUR ---
Pt able to expectorate and is no longer coughing
[2018-01-24] MEDS: HEPARIN/D5W DRIP 500 ML IV PRN (02:02)
[2018-01-24] MEDS: MORPHINE SULFATE 4 MG/1 ML DISP.SYRIN IV PRN (02:04)
--- NOTE | 2018-01-24 02:16 | NUR ---
Pt verbalized that she was in pain. Morphine sulfate administered as ordered.
--- NOTE | 2018-01-24 02:20 | NUR ---
New order for chest X-ray
[2018-01-24] MEDS: IPRATROPIUM BROMIDE 0.5 MG/2.5 ML NEBU NEB PRN (02:47)
[2018-01-24] MEDS: ALBUTEROL SULFATE 1.25 MG/3 ML NEBU NEB PRN (02:47)
--- NOTE | 2018-01-24 04:18 | NUR ---
Chest x-ray completed by medical service technician. Awaiting results
[2018-01-24 05:25] LABS: ALANINE AMINOTRANSFERASE 30 U/L (14-59); ALKALINE PHOSPHATASE 79 U/L (50-136); ASPARTATE AMINOTRANSFERASE 56 U/L (15-37); BILIRUBIN,TOTAL 0.2 mg/dL (0.2-1.0); CARBON DIOXIDE 21 mmol/L (21-32); CHLORIDE 116 mmol/L (98-107); CREATININE 5.7 mg/dL (0.6-1.3); GLUCOSE 224 mg/dL (74-106); MAGNESIUM 2.3 mg/dL (1.8-2.4); PHOSPHOROUS 5.8 mg/dL (2.5-4.9); POTASSIUM 4.3 mmol/L (3.5-5.1); TOTAL PROTEIN, SERUM 5.5 g/dL (6.4-8.2)
[2018-01-24 05:32] LABS: BASOPHILS % (AUTO) 0.3 % (0.0-2.0); EOSINOPHILS # (AUTO) 0.2 K/uL (0.0-0.7); EOSINOPHILS % (AUTO) 1.3 % (0.0-7.0); HEMATOCRIT 33.1 % (31.2-41.9); HEMOGLOBIN 10.8 g/dL (10.9-14.3); LYMPHOCYTES # (AUTO) 0.9 K/uL (20.0-40.0); LYMPHOCYTES % (AUTO) 6.7 % (20.5-51.5); MEAN CORPUSCULAR HEMOGLOBIN 31.5 uug (24.7-32.8); MEAN CORPUSCULAR HGB CONC 33 g/dL (32.3-35.6); MEAN CORPUSCULAR VOLUME 96.3 fL (75.5-95.3); MONOCYTES # (AUTO) 1.4 K/uL (2.0-10.0); MONOCYTES % (AUTO) 9.8 % (0.0-11.0); NEUTROPHILS # (AUTO) 11.5 K/uL (1.8-8.9); NEUTROPHILS % (AUTO) 81.9 % (38.5-71.5); PLATELET COUNT (AUTO) 129 K/uL (179-408); RED BLOOD CELL COUNT(AUTO) 3.44 MIL/uL (3.63-4.92)
--- NOTE | 2018-01-24 05:42 | NUR ---
Pt noted to be twitching during AM care. Signs or pain. Continues to remain disoriented.
[2018-01-24 05:54] LABS: UREA NITROGEN, BLOOD 95 mg/dL (7-18)
--- NOTE | 2018-01-24 06:05 | NUR ---
Received critical lab result aPTT of 88.0 seconds and BUN of 95. MD made awareAs per heparin protocol infusion held for 30 minutes.
[2018-01-24] MEDS: [UNRECOGNIZED DRUG - OTHER] IV PRN (06:23)
[2018-01-24] MEDS: SODIUM ACETATE IV PRN (06:23)
--- NOTE | 2018-01-24 07:00 | NUR ---
Radiologist called re: abnormal CXR. Call placed to Dr. Maria; called back immediately. Results of CXR relayed to him. Also aware that patient is oliguric. Order received to DC IV.
[2018-01-24] MEDS: PANTOPRAZOLE SODIUM 40 MG VIAL IV SCH (08:02)
[2018-01-24] MEDS: Z GUARD REMEDY PASTE 57 GM TUBE TOP SCH ×2 (08:03→20:00)
[2018-01-24] MEDS: PHENYLEPHRINE IV PRN (09:16)
[2018-01-24] MEDS: NORMAL SALINE IV PRN (09:16)
[2018-01-24] MEDS ORDERED: HEPARIN SODIUM,PORCINE 5,000 UNITS/ML VIAL IV PRN (09:30)
--- NOTE | 2018-01-24 11:45 | NUR ---
Dr. Kothari in to see patient, Informed of hourly urine output, and provided with pt's phone number. As stated by . "pt. in need of hemodialysis stat". Awaiting further orders.
--- NOTE | 2018-01-24 14:58 | NUR ---
Cardiology services Dr. colunga in the unit to see and examine, pt. report given. Orders to dcd heparin drip received, and carried.
--- NOTE | 2018-01-24 15:00 | NUR ---
Neurology services Opal Guo in the unit to examine pt.
--- NOTE | 2018-01-24 15:33 | NUR ---
CLINICAL PHARMACY NOTE: VANCOMYCIN DOSING S: Request for vancomycin dosing on 72 y/o female for sepsis O: Temp 98.4 BUN 95 Scr 5.7 (ARF) WBC 14 Random level: 25.6 at 1500 today Plan Will continue to dose by levels due to decrease renal function. No dose shall be due today since vanco random level is above 20 mcg/ml. Plan to draw vanco random level tomorrow with am labs for further dosing . Will follow
--- NOTE | 2018-01-24 17:55 | NUR ---
Attending physician in the unit to examine patient, full report given orders received and carried.
[2018-01-24] MEDS: MEROPENEM 500 MG in IV NORMAL SALINE 50 ML IV SCH (19:30)
[2018-01-24] MEDS: LATANOPROST OPHT DROP 2.5 ML BOTTLE EACHEYE SCH (20:00)
--- NOTE | 2018-01-24 20:00 | NUR ---
Pt in room alert and arousable to name and touch. No s/s of resp distress. Maintaining Neosenephrine at 80mcg/min. NG tube in place and patent. Sinus rhythm present on monitor. Oxygen sat 94-100% with 3l/min via n/c. No s/s of hyper/hypoglycemia. Right IJ intact. Pt needs frequent suctioning and oral care prn. Will continue to monitor. HOB elevated 30 degrees with two side rails raised.
[2018-01-24] MEDS ORDERED: GLUCERNA 1.2 1000ML LIQUID NG PRN (20:30)
--- NOTE | 2018-01-24 22:00 | NUR ---
Glucerna 1.2 started on 30cc/hr.
[2018-01-25] VITALS (57 sets, daily range): BP systolic 92–142; BP diastolic 33–91
[2018-01-25] MEDS: PHENYLEPHRINE IV PRN (00:51)
[2018-01-25] MEDS: NORMAL SALINE IV PRN (00:51)
[2018-01-25] MEDS: Z GUARD REMEDY PASTE 57 GM TUBE TOP PRN (00:52)
--- NOTE | 2018-01-25 01:15 | NUR ---
BP 130/61. Mohit drip titrated to 75 mcg/min. Will continue to monitor.
--- NOTE | 2018-01-25 02:22 | NUR ---
Mohit drip titrated to 70 mcg/min. BP 126/65.
--- NOTE | 2018-01-25 03:40 | NUR ---
Mohit drip titrated to 60mcg/min. BP 126/76.
--- NOTE | 2018-01-25 04:20 | NUR ---
Mohit drip titrated to 50 mcg/min. BP 131/91.
[2018-01-25 05:04] LABS: BASOPHILS % (AUTO) 0.3 % (0.0-2.0); EOSINOPHILS # (AUTO) 0.1 K/uL (0.0-0.7); EOSINOPHILS % (AUTO) 1.6 % (0.0-7.0); HEMATOCRIT 31.2 % (31.2-41.9); HEMOGLOBIN 10.2 g/dL (10.9-14.3); LYMPHOCYTES # (AUTO) 0.6 K/uL (20.0-40.0); MEAN CORPUSCULAR HEMOGLOBIN 31.4 uug (24.7-32.8); MEAN CORPUSCULAR HGB CONC 33 g/dL (32.3-35.6); MEAN CORPUSCULAR VOLUME 95.9 fL (75.5-95.3); MONOCYTES # (AUTO) 0.7 K/uL (2.0-10.0); MONOCYTES % (AUTO) 7.6 % (0.0-11.0); NEUTROPHILS # (AUTO) 7.4 K/uL (1.8-8.9); NEUTROPHILS % (AUTO) 83.5 % (38.5-71.5); PLATELET COUNT (AUTO) 70 K/uL (179-408); RED BLOOD CELL COUNT(AUTO) 3.25 MIL/uL (3.63-4.92); WHITE BLOOD COUNT (AUTO) 8.8 K/uL (3.8-11.8)
[2018-01-25] MEDS: BLOOD SUGAR DIAGNOSTIC 1 EACH STRIP VI SCH ×3 (05:14→18:35)
[2018-01-25] MEDS: INSULIN REGULAR, HUMAN 300 UNIT/3 ML VIAL SQ PRN ×3 (05:16→18:44)
[2018-01-25 05:17] LABS: ALANINE AMINOTRANSFERASE 26 U/L (14-59); ALKALINE PHOSPHATASE 84 U/L (50-136); ASPARTATE AMINOTRANSFERASE 34 U/L (15-37); BILIRUBIN,TOTAL 0.3 mg/dL (0.2-1.0); CARBON DIOXIDE 21 mmol/L (21-32); CHLORIDE 117 mmol/L (98-107); CREATININE 6.9 mg/dL (0.6-1.3); GLUCOSE 267 mg/dL (74-106); MAGNESIUM 2.4 mg/dL (1.8-2.4); PHOSPHOROUS 6.5 mg/dL (2.5-4.9); POTASSIUM 5.2 mmol/L (3.5-5.1); TOTAL PROTEIN, SERUM 5.2 g/dL (6.4-8.2)
[2018-01-25 05:33] LABS: UREA NITROGEN, BLOOD 108 mg/dL (7-18)
--- NOTE | 2018-01-25 05:58 | NUR ---
Patient observed for aspiration precautions. V/s are WNL at this time. No s/s of acute distress. Glucerna 1.2 tube feeding 30cc in place. Tolerating well. Maintaining Neosynephrine drip at 50mcg/min.
[2018-01-25] MEDS: PANTOPRAZOLE SODIUM 40 MG VIAL IV SCH (08:50)
[2018-01-25] MEDS: Z GUARD REMEDY PASTE 57 GM TUBE TOP SCH ×2 (08:51→20:47)
[2018-01-25] MEDS ORDERED: BUMETANIDE INJ 4 MG in IV DEXTROSE 5% 34 ML IV ONE (11:00)
[2018-01-25] MEDS ORDERED: BUMETANIDE INJ 4 MG in IV DEXTROSE 5% 24 ML IV ONE (11:00)
--- NOTE | 2018-01-25 11:50 | NUR ---
doctor ray in unit.
--- NOTE | 2018-01-25 13:30 | NUR ---
dietary came made recommendations. placed orders per doctor rodriguez dietary consult for feeding recommendations.
--- NOTE | 2018-01-25 14:00 | NUR ---
doctor keanu in the unit to see patient no new orders to give after update.
--- NOTE | 2018-01-25 14:00 | NUR ---
doctor mariama PAD EXTRACTION TENDER in the unit to see patient. no new orders received.
[2018-01-25] MEDS: NEPRO 1000 ML NG PRN (16:57)
[2018-01-25] MEDS ORDERED: DEXTROSE 50% 50 ML DISP.SYRIN IV PRN (19:30)
--- NOTE | 2018-01-25 19:30 | NUR ---
: brady came and updated with patient condition see notes and orders .
--- NOTE | 2018-01-25 20:00 | NUR ---
rounds made patient in bed aaox1.otherwise lethargic . maex4 ,very slow and weak .off pressors . NGT tf in progress now shes getting Nepro at 40 ml/hr .hob up and aspiration precaution . F/C TO BSD low urinary output as david llanos aware and family refused HD. SR on the heart monitor .continue to monitor v/s and levels of comfort .
--- NOTE | 2018-01-25 20:00 | NUR ---
CHANEL CARRERA came and saw patient .updated with patient condition .
[2018-01-25] MEDS: MEROPENEM 500 MG in IV NORMAL SALINE 50 ML IV SCH (20:46)
[2018-01-25] MEDS: LATANOPROST OPHT DROP 2.5 ML BOTTLE EACHEYE SCH (20:48)
--- NOTE | 2018-01-25 22:00 | NUR ---
turned and reposition patient . elevated bilateral upper and lower extremities . on special air loss mattress . scds used to BLE .
[2018-01-26] VITALS (24 sets, daily range): BP systolic 89–148; BP diastolic 45–76
--- NOTE | 2018-01-26 | NUR ---
f/s done results 370 given insulin sliding scale . patient now on moderate sliding scale .
[2018-01-26] MEDS: BLOOD SUGAR DIAGNOSTIC 1 EACH STRIP VI SCH ×4 (00:06→18:01)
[2018-01-26] MEDS: INSULIN REGULAR, HUMAN 300 UNIT/3 ML VIAL SQ PRN ×4 (00:08→18:11)
--- NOTE | 2018-01-26 04:00 | NUR ---
patient sleep on and off ,no s/s of pain .am care done . bath patient changed soiled linens and gown .skin care done . f/c and oral care done .
[2018-01-26 05:17] LABS: BASOPHILS % (AUTO) 0.2 % (0.0-2.0); EOSINOPHILS # (AUTO) 0.1 K/uL (0.0-0.7); EOSINOPHILS % (AUTO) 1.3 % (0.0-7.0); HEMATOCRIT 28.7 % (31.2-41.9); HEMOGLOBIN 9.5 g/dL (10.9-14.3); LYMPHOCYTES # (AUTO) 0.4 K/uL (20.0-40.0); LYMPHOCYTES % (AUTO) 6.3 % (20.5-51.5); MEAN CORPUSCULAR HEMOGLOBIN 31.7 uug (24.7-32.8); MEAN CORPUSCULAR HGB CONC 33 g/dL (32.3-35.6); MEAN CORPUSCULAR VOLUME 95.8 fL (75.5-95.3); MONOCYTES # (AUTO) 0.4 K/uL (2.0-10.0); MONOCYTES % (AUTO) 5.7 % (0.0-11.0); NEUTROPHILS # (AUTO) 6.1 K/uL (1.8-8.9); NEUTROPHILS % (AUTO) 86.5 % (38.5-71.5); PLATELET COUNT (AUTO) 56 K/uL (179-408); WHITE BLOOD COUNT (AUTO) 7.1 K/uL (3.8-11.8)
[2018-01-26 05:30] LABS: CARBON DIOXIDE 20 mmol/L (21-32); CHLORIDE 119 mmol/L (98-107); MAGNESIUM 2.9 mg/dL (1.8-2.4); PHOSPHOROUS 6.4 mg/dL (2.5-4.9); POTASSIUM 5.1 mmol/L (3.5-5.1)
[2018-01-26 05:51] LABS: GLUCOSE 336 mg/dL (74-106)
[2018-01-26 05:52] LABS: CREATININE 7.9 mg/dL (0.6-1.3); UREA NITROGEN, BLOOD 128 mg/dL (7-18)
[2018-01-26 06:43] LABS: BAND % (MANUAL) 4 % (0-10); EOSINOPHILS % (MANUAL) 1 % (0-8); LYMPHOCYTES % (MANUAL) 9 % (20-40); MONOCYTES % (MANUAL) 1 % (2-10); NEUTROPHILS % (MANUAL) 85 % (42-75)
--- NOTE | 2018-01-26 07:41 | NUR ---
RECEIVED A 72 Y/O FEMALE PT CASE OF SEPTIC SHOCK, DKA,ARF, THROMBOCYTOPENIA. SHES LETHARGIC, RESTLESS, RESPONDS TO NAME AND TOUCH. BREATHING VIA NC 3LPM. CONNECTED TO MODEL PHOTOGRAPHERS'. HAS A RT IJ. NGT RECEIVING TUBE FEEDING NEPRO @40ML/HR. HELD TILL 10 AM. URINATING VIA FC.
[2018-01-26] MEDS: PANTOPRAZOLE SODIUM 40 MG VIAL IV SCH (08:23)
[2018-01-26] MEDS: Z GUARD REMEDY PASTE 57 GM TUBE TOP SCH ×2 (08:24→20:11)
[2018-01-26] MEDS: NEPRO 1000 ML NG PRN (10:00)
--- NOTE | 2018-01-26 10:00 | NUR ---
MOUTH CARE DONE, SUCTION DONE LARGE AMOUNT OF THICK SECRETIONS WHITISH/YELLOWISH. NGT ASSESSMENT DONE, NO RESIDUAL, TUBE IN PLACE. FEEDING RESUMED AT 40ML/HR.
--- NOTE | 2018-01-26 11:30 | NUR ---
SEEN BY DR ESCOBEDO, UPDATES GIVEN ON PT, ORDERED TO START PT ON 300ML OF WATER VIA NGT Q4 HRS, LAS 100MG IV GIVEN OVER 4 HRS DRIP.
--- NOTE | 2018-01-26 12:00 | NUR ---
SEEN BY DR JULIO, UPDATES GIVEN ON PT. NO NEW ORDERS. PLANS TO DISCUSS FAMILY TOMORROW REGARDING PALLIATIVE CARE.
[2018-01-26] MEDS: INSULIN GLARGINE,HUM 300 UNITS/3 ML CARTRIDGE SQ SCH (12:03)
[2018-01-26] MEDS ORDERED: DEXTROSE 5% IV ONE (12:30)
[2018-01-26] MEDS ORDERED: FUROSEMIDE IV ONE (12:30)
--- NOTE | 2018-01-26 16:00 | NUR ---
BED BATH DONE, BED LINEN CHANGED. MOUTH CARE DONE, SUCTION DONE MODERATE AMOUNT OF SECRETIONS
[2018-01-26] MEDS: IPRATROPIUM BROMIDE 0.5 MG/2.5 ML NEBU NEB PRN (19:14)
[2018-01-26] MEDS: ALBUTEROL SULFATE 1.25 MG/3 ML NEBU NEB PRN (19:15)
[2018-01-26] MEDS: MEROPENEM 500 MG in IV NORMAL SALINE 50 ML IV SCH (20:09)
[2018-01-26] MEDS: LATANOPROST OPHT DROP 2.5 ML BOTTLE EACHEYE SCH (20:10)
--- NOTE | 2018-01-26 20:30 | NUR ---
patient incontinent of stool .large amount of form to soft brownish stool .changed soiled linen and gown .skin care done .turned and reposition . hob up .continue tf on Nepro at 40 ml hr . flushed with 300 ml of water q4 hours . due medication given and scan .
[2018-01-27] VITALS (24 sets, daily range): BP systolic 99–131; BP diastolic 46–69
[2018-01-27] MEDS: BLOOD SUGAR DIAGNOSTIC 1 EACH STRIP VI SCH ×4 (00:20→18:22)
[2018-01-27] MEDS: INSULIN REGULAR, HUMAN 300 UNIT/3 ML VIAL SQ PRN ×4 (00:22→18:46)
[2018-01-27 05:14] LABS: BASOPHILS % (AUTO) 0.2 % (0.0-2.0); EOSINOPHILS # (AUTO) 0.3 K/uL (0.0-0.7); EOSINOPHILS % (AUTO) 3.8 % (0.0-7.0); HEMOGLOBIN 9.2 g/dL (10.9-14.3); LYMPHOCYTES # (AUTO) 0.5 K/uL (20.0-40.0); LYMPHOCYTES % (AUTO) 7.8 % (20.5-51.5); MEAN CORPUSCULAR HEMOGLOBIN 31.6 uug (24.7-32.8); MEAN CORPUSCULAR HGB CONC 33 g/dL (32.3-35.6); MEAN CORPUSCULAR VOLUME 96.2 fL (75.5-95.3); MONOCYTES # (AUTO) 0.5 K/uL (2.0-10.0); MONOCYTES % (AUTO) 7.4 % (0.0-11.0); NEUTROPHILS # (AUTO) 5.7 K/uL (1.8-8.9); NEUTROPHILS % (AUTO) 80.8 % (38.5-71.5); PLATELET COUNT (AUTO) 62 K/uL (179-408); RED BLOOD CELL COUNT(AUTO) 2.91 MIL/uL (3.63-4.92)
[2018-01-27 05:19] LABS: *BLOOD, URINE 2+ (NEGATIVE); *CLARITY,URINE CLOUDY (CLEAR); *COLOR,URINE YELLOW (YELLOW); *KETONES,URINE NEGATIVE (NEGATIVE); *PROTEIN,URINE 2+ (NEGATIVE); *UROBILINOGEN,URINE 0.2 E.U./dl (NORMAL); LEUKOCYTE ESTERASE ,URINE 2+ (NEGATIVE); NITRITE, URINE NEGATIVE (NEGATIVE)
[2018-01-27 05:26] LABS: *BILIRUBIN,URIN 1+ (NEGATIVE); UGLUCOSE 1+ (NEGATIVE)
[2018-01-27 05:38] LABS: CARBON DIOXIDE 21 mmol/L (21-32); CHLORIDE 116 mmol/L (98-107); MAGNESIUM 2.9 mg/dL (1.8-2.4); PHOSPHOROUS 5.7 mg/dL (2.5-4.9)
[2018-01-27 05:43] LABS: *CREATININE,URINE 87.9 mg/dL (30-125); *URINE TOTAL PROTEIN RANDOM 140.2 mg/dL (<150/24HR)
[2018-01-27 05:57] LABS: CREATININE 8.6 mg/dL (0.6-1.3); GLUCOSE 402 mg/dL (74-106); UREA NITROGEN, BLOOD 135 mg/dL (7-18)
[2018-01-27 06:07] LABS: BACTERIA,URINE MODERATE /HPF (NONE SEEN); RBC,URINE 20-50 /HPF (0-3); SQUAMOUS EPITHELIAL CELL,UR MODERATE /HPF (NONE SEEN); WBC,URINE 50-80 /HPF (0-3); YEAST,URINE FEW /HPF (NONE SEEN)
[2018-01-27 06:25] LABS: EOSINOPHILS % (MANUAL) 2 % (0-8); LYMPHOCYTES % (MANUAL) 11 % (20-40); MONOCYTES % (MANUAL) 7 % (2-10); NEUTROPHILS % (MANUAL) 79 % (42-75)
--- NOTE | 2018-01-27 07:19 | NUR ---
RECEIVED A 72 Y/O FEMALE PT CASE OF SEPTIC SHOCK, DKA,ARF, THROMBOCYTOPENIA. SHES LETHARGIC, RESTLESS, RESPONDS TO NAME AND TOUCH. BREATHING VIA NC 3LPM. CONNECTED TO RN GASTROENTEROLOGY. HAS A RT IJ. NGT RECEIVING TUBE FEEDING NEPRO @40ML/HR. HELD TILL 10 AM. URINATING VIA FC.
[2018-01-27] MEDS: Z GUARD REMEDY PASTE 57 GM TUBE TOP SCH ×2 (08:20→20:50)
[2018-01-27] MEDS: INSULIN GLARGINE,HUM 300 UNITS/3 ML CARTRIDGE SQ SCH (08:29)
[2018-01-27] MEDS ORDERED: PANTOPRAZOLE ORAL SUSPENSION 40 MG SUSPDR.PKT GT SCH (09:00)
[2018-01-27] MEDS: NEPRO 1000 ML NG PRN (09:56)
[2018-01-27] MEDS: CEFEPIME HCL 1 G in IV DEXTROSE 5% 50 ML IV SCH (14:41)
--- NOTE | 2018-01-27 17:15 | NUR ---
ABGS DONE, FIO2 DOWN TO 90% ON BIPAP
--- NOTE | 2018-01-27 19:30 | NUR ---
Report received. Patient assessed. Opens eyes to name, no answer to questions, but able to follow simple commands. O2 3 L NC sat above 94%. With continuous NGT feedings at 40 ml/H; no residual. Head to toe assessment done; see flow sheet for all data. Addendum: 01/28/18 at 0318 by ESTHELA CORNELL RN Amended: Links added. Addendum: 01/28/18 at 0321 by ESTHELA CORNELL RN Amended: Links added. Addendum: 01/28/18 at 0323 by ESTHELA CORNELL RN Amended: Links added. Addendum: 01/28/18 at 0325 by ESTHELA CORNELL RN Amended: Links added.
--- NOTE | 2018-01-27 20:00 | NUR ---
Incontinent of liquid, soft yellow brown stools. Cleaned; skin care provided. Turned and repositioned. Addendum: 01/28/18 at 0321 by ESTHELA CORNELL RN Amended: Links added. Addendum: 01/28/18 at 322 by ESTHELA CORNELL RN Amended: Links added. Addendum: 01/28/18 at 324 by ESTHELA CORNELL RN Amended: Links added.
--- NOTE | 2018-01-27 20:45 | NUR ---
Seen by Dr. Maria; no new order.
[2018-01-27] MEDS: LATANOPROST OPHT DROP 2.5 ML BOTTLE EACHEYE SCH (20:50)
--- NOTE | 2018-01-27 21:15 | NUR ---
Coughing. Suctioned orally for thick, bloody tinged secretions. Oral care done. Patient mildly agitated during suctioning; pulling on her gown. Advised and reoriented PRN. Addendum: 01/28/18 at 0325 by ESTHELA CORNELL RN Amended: Links added.
[2018-01-28] VITALS (17 sets, daily range): BP systolic 100–141; BP diastolic 40–64
--- NOTE | 2018-01-28 | NUR ---
Tolerating NGT feedings well. Turned and repositioned Q2H.
[2018-01-28] MEDS: BLOOD SUGAR DIAGNOSTIC 1 EACH STRIP VI SCH ×5 (00:05→23:42)
[2018-01-28] MEDS: INSULIN REGULAR, HUMAN 300 UNIT/3 ML VIAL SQ PRN ×5 (00:06→23:43)
[2018-01-28 05:24] LABS: ALANINE AMINOTRANSFERASE 16 U/L (14-59); ALKALINE PHOSPHATASE 114 U/L (50-136); ASPARTATE AMINOTRANSFERASE 12 U/L (15-37); BILIRUBIN,TOTAL 0.2 mg/dL (0.2-1.0); CARBON DIOXIDE 21 mmol/L (21-32); CHLORIDE 111 mmol/L (98-107); MAGNESIUM 3.1 mg/dL (1.8-2.4); PHOSPHOROUS 5.2 mg/dL (2.5-4.9); TOTAL PROTEIN, SERUM 4.6 g/dL (6.4-8.2)
[2018-01-28 05:28] LABS: GLUCOSE 319 mg/dL (74-106)
[2018-01-28 05:29] LABS: CREATININE 9.2 mg/dL (0.6-1.3); UREA NITROGEN, BLOOD 147 mg/dL (7-18)
[2018-01-28 05:31] LABS: BASOPHILS % (AUTO) 0.2 % (0.0-2.0); EOSINOPHILS # (AUTO) 0.6 K/uL (0.0-0.7); EOSINOPHILS % (AUTO) 9.8 % (0.0-7.0); HEMATOCRIT 27.7 % (31.2-41.9); HEMOGLOBIN 9.3 g/dL (10.9-14.3); LYMPHOCYTES # (AUTO) 0.6 K/uL (20.0-40.0); LYMPHOCYTES % (AUTO) 9.9 % (20.5-51.5); MEAN CORPUSCULAR HEMOGLOBIN 31.9 uug (24.7-32.8); MEAN CORPUSCULAR HGB CONC 33 g/dL (32.3-35.6); MEAN CORPUSCULAR VOLUME 95.4 fL (75.5-95.3); MONOCYTES # (AUTO) 0.6 K/uL (2.0-10.0); MONOCYTES % (AUTO) 9.9 % (0.0-11.0); NEUTROPHILS # (AUTO) 4.3 K/uL (1.8-8.9); NEUTROPHILS % (AUTO) 70.2 % (38.5-71.5); PLATELET COUNT (AUTO) 67 K/uL (179-408); WHITE BLOOD COUNT (AUTO) 6.1 K/uL (3.8-11.8)
[2018-01-28] MEDS: Z GUARD REMEDY PASTE 57 GM TUBE TOP PRN (05:43)
--- NOTE | 2018-01-28 06:00 | NUR ---
NGT feedings held [id number]. Still suctioning thick bloody tinged oral secretions.
--- NOTE | 2018-01-28 06:15 | NUR ---
Abnormal labs called to David Hare NP; no orders. Still oliguric. VS stable.
--- NOTE | 2018-01-28 07:32 | NUR ---
RECEIVED A 72 Y/O FEMALE PT CASE OF SEPTIC SHOCK, DKA,ARF, THROMBOCYTOPENIA. SHES LETHARGIC, RESTLESS, RESPONDS TO NAME AND TOUCH. BREATHING VIA NC 3LPM. 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 HAS A RT IJ. NGT RECEIVING TUBE FEEDING NEPRO @40ML/HR. HELD TILL 10 AM. URINATING VIA FC.
[2018-01-28] MEDS: PANTOPRAZOLE ORAL SUSPENSION 40 MG SUSPDR.PKT NG SCH (09:10)
[2018-01-28] MEDS: Z GUARD REMEDY PASTE 57 GM TUBE TOP SCH ×2 (09:11→20:38)
[2018-01-28] MEDS: INSULIN GLARGINE,HUM 300 UNITS/3 ML CARTRIDGE SQ SCH (09:14)
[2018-01-28] MEDS: NEPRO 1000 ML NG PRN (09:59)
[2018-01-28 10:15] LABS: EOSINOPHILS % (MANUAL) 8 % (0-8); LYMPHOCYTES % (MANUAL) 11 % (20-40); MONOCYTES % (MANUAL) 9 % (2-10); NEUTROPHILS % (MANUAL) 72 % (42-75)
--- NOTE | 2018-01-28 12:43 | NUR ---
SEEN BY DR JULIO.Tasha ORDERED TO TRANSFER PATIENT TO MEDICAL [facility] UNIT. ORDER RECEIVED.
--- NOTE | 2018-01-28 13:00 | NUR ---
PATIENT PASSED A LARGE AMOUNT OF SOFT VS LIQUID STOOL. CARE DONE.
--- NOTE | 2018-01-28 14:00 | NUR ---
PATIENTS REPORT GIVEN TO LIANET LEO FROM [facility].
--- NOTE | 2018-01-28 14:30 | NUR ---
PATIENTS TRANSFERRED TO MED-SURGICAL UNIT ON BED, ALL BELONGINGS AND MEDICATION SENT WITH PATIENT.
--- NOTE | 2018-01-28 15:00 | NUR ---
Received pt from [facility] unit. Pt comfortable in bed. o2 @ 2 liters with sat of 96%. Pt non verbal confused. NGT audible in stomach. No residual noted. Call light is within reach. Right Jugular triple lumen intact. 1/3 lumen non functioning and labeled the other 2 lumens are functional and flushing.
[2018-01-28] MEDS: CEFEPIME HCL 1 G in IV DEXTROSE 5% 50 ML IV SCH (16:16)
--- NOTE | 2018-01-28 18:00 | NUR ---
Pt is in no acute distress. Call light is within reach.
--- NOTE | 2018-01-28 20:00 | NUR ---
RECEIVED PATIENT ASLEEP IN BED. ALERT TO SELF ONLY. EASILY AROUSABLE. VSS. TUBE FEEDING INFUSING WELL TO RIGHT NARES. ON ASPIRATION PRECAUTIONS. ON AIR MATTRESS. F/C INTACT AND PATENT. NO RESP. DISTRESS NOTED. BED ALARM ON. CALL LIGHT IN REACH. ALL NEEDS ATTENDED. WILL CONTINUE TO MONITOR AND ASSESS.
[2018-01-28] MEDS: LATANOPROST OPHT DROP 2.5 ML BOTTLE EACHEYE SCH (20:53)
[2018-01-28] MEDS: MORPHINE SULFATE 4 MG/1 ML DISP.SYRIN IV PRN (23:45)
[2018-01-29 05:06] VITALS: BP 100/50
[2018-01-29] MEDS: BLOOD SUGAR DIAGNOSTIC 1 EACH STRIP VI SCH ×2 (05:41→11:32)
[2018-01-29] MEDS: INSULIN REGULAR, HUMAN 300 UNIT/3 ML VIAL SQ PRN ×2 (05:42→11:30)
--- NOTE | 2018-01-29 06:36 | NUR ---
PATIENT ASLEEP IN BED. FEEDING INFUSING WELL. PATIENT TOLERATING. REPOSITIONED TO SIDE. NO S/S OF PAIN OR DISCOMFORT. NO RESP. DISTRESS NOTED. BED ALARM ON. ALL NEEDS ATTENDED, WILL CONTINUE TO MONITOR.
--- NOTE | 2018-01-29 08:00 | NUR ---
Fall and safety precautions implemented. Pain management implemented. NGT intact and audible in stomach. No residual noted. Pt is in no acute distress. Call light is within reach.
[2018-01-29] MEDS: Z GUARD REMEDY PASTE 57 GM TUBE TOP SCH (08:19)
[2018-01-29] MEDS: PANTOPRAZOLE ORAL SUSPENSION 40 MG SUSPDR.PKT NG SCH (08:19)
[2018-01-29] MEDS: INSULIN GLARGINE,HUM 300 UNITS/3 ML CARTRIDGE SQ SCH (08:24)
[2018-01-29 12:00] VITALS: BP 135/52
[2018-01-29] MEDS ORDERED: Nepro NG (13:26)
[2018-01-29] MEDS: CEFEPIME HCL 1 G in IV DEXTROSE 5% 50 ML IV SCH (14:41)
[2018-01-29 15:35] VITALS: BP 141/53
--- NOTE | 2018-01-29 16:30 | NUR ---
Pt is in no acute distress upon discharge. 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 Family aware as set up by case management. [facility] case management/casework supervisor for [facility] approved admission. Addendum: 01/29/18 at 1836 by FELIPA GARCIA RN GR[facility] [phone]
== END 2018-01-29 16:30 | disposition hospice, home (50) | DRG 871 ==
LOC: ER 08:04 → CCU 10:44 → MED 01-28 14:45
PROVIDERS: ADMIT Internal Medicine; ATTEND Internal Medicine
PROC: 05HM33Z Insertion of Infusion Device into Right Internal Jugular Vein, Percutaneous Approach (ICD-10-PCS; principal; 2018-01-22)
PROC: 0DH67UZ Insertion of Feeding Device into Stomach, Via Natural or Artificial Opening (ICD-10-PCS; 2018-01-24)
PROC: 3E0G76Z Introduction of Nutritional Substance into Upper GI, Via Natural or Artificial Opening (ICD-10-PCS; 2018-01-24)
DX: A41.59 Other Gram-negative sepsis (principal); R65.21 Severe sepsis with septic shock; N17.0 Acute kidney failure with tubular necrosis; G92 Toxic encephalopathy; E11.10 Type 2 diabetes mellitus with ketoacidosis without coma; I21.A1 Myocardial infarction type 2; I50.31 Acute diastolic (congestive) heart failure; I71.00 Dissection of unspecified site of aorta; N39.0 Urinary tract infection, site not specified; D68.59 Other primary thrombophilia; I47.1 Supraventricular tachycardia; L97.429 Non-pressure chronic ulcer of left heel and midfoot with unspecified severity; L97.329 Non-pressure chronic ulcer of left ankle with unspecified severity; L98.498 Non-pressure chronic ulcer of skin of other sites with other specified severity; E87.0 Hyperosmolality and hypernatremia; Z66 Do not resuscitate; Z51.5 Encounter for palliative care; Z16.11 Resistance to penicillins; Z16.19 Resistance to other specified beta lactam antibiotics; B96.4 Proteus (mirabilis) (morganii) as the cause of diseases classified elsewhere; Z79.84 Long term (current) use of oral hypoglycemic drugs; E87.5 Hyperkalemia; H40.9 Unspecified glaucoma; I69.344 Monoplegia of lower limb following cerebral infarction affecting left non-dominant side; Z74.09 Other reduced mobility; F01.50 Vascular dementia, unspecified severity, without behavioral disturbance, psychotic disturbance, mood disturbance, and anxiety; Z87.440 Personal history of urinary (tract) infections; F31.9 Bipolar disorder, unspecified; I11.0 Hypertensive heart disease with heart failure; I07.1 Rheumatic tricuspid insufficiency; E86.9 Volume depletion, unspecified; D64.9 Anemia, unspecified; D69.6 Thrombocytopenia, unspecified; I70.0 Atherosclerosis of aorta; F41.9 Anxiety disorder, unspecified
CPT/HCPCS: 36415; 36556; 36600; 70030-TC; 70450; 71045; 74018; 76770; 83605; 83735; 84100; 84156; 84300; 85025; 85610; 85730; 87040; 87077; 87086; 93005; 93307; 94664; A4663; C1751; C9113; G0378; J0692; J1644; J1815; J1940; J1956; J2185; J2270; J2370; J2543; J3370; J3490; J3590; J7030; J7040; J7042; J7050; J7060